=== PATIENT | male | born 1940 | race Caucasian/White ===

== ENCOUNTER → 2016-05-29 | Outpatient (CLI) | payer MEDICARE | LOC: HEART 5 14:56 | DX: I73.9 Peripheral vascular disease, unspecified (principal); R94.39 Abnormal result of other cardiovascular function study | CPT/HCPCS: 93925 ==

== ENCOUNTER 2016-06-26 10:12 | Emergency (ER) | payer MEDICARE ==
[2016-06-26 11:39] LABS: HEMOGLOBIN 10.6 gm/dl (14.0-17.5); RED BLOOD COUNT 4.57 M/UL (4.20-5.50); WHITE BLOOD COUNT 8.6 K/UL (4.5-11.0)
== END 2016-06-26 15:00 | disposition home or self-care (01) ==
LOC: ER1 10:12
PROVIDERS: Physician Assistant
DX: I48.91 Unspecified atrial fibrillation (principal); I13.0 Hypertensive heart and chronic kidney disease with heart failure and stage 1 through stage 4 chronic kidney disease, or unspecified chronic kidney disease; I50.9 Heart failure, unspecified; N18.9 Chronic kidney disease, unspecified; E11.22 Type 2 diabetes mellitus with diabetic chronic kidney disease; Z95.0 Presence of cardiac pacemaker; Z95.5 Presence of coronary angioplasty implant and graft; I25.2 Old myocardial infarction; M10.9 Gout, unspecified; E07.9 Disorder of thyroid, unspecified; Z79.84 Long term (current) use of oral hypoglycemic drugs; Z79.899 Other long term (current) drug therapy
CPT/HCPCS: 36415; 71010; 80053; 82550; 82553; 83874; 84443; 84484; 85025; 93005; 99285